=== PATIENT | male | born 1950 | race Two or more races ===

== ENCOUNTER 2019-03-01 17:33 | Emergency (ER) | payer OTHER ==
[~2019-03-01] VITALS: Ht 162.6 cm; Wt 80.7 kg
[2019-03-01 19:26] LABS: Basophils # (auto) 0.1 uL; Basophils % (auto) 0.4 % (0.0-2.0); Eosinophils # (auto) 0.1 uL; Eosinophils % (auto) 1.3 % (0.0-7.0); Hematocrit 39.2 % (41.0-53.0); Hemoglobin 13.2 g/dL (13.5-17.5); Lymphocytes # (auto) 0.5 uL; Lymphocytes % (auto) 4.4 % (10.0-50.0); Mean Corpuscular Hemoglobin 28.4 pg (28.0-32.0); Mean Corpuscular Hgb Conc. 33.5 g/dL (32.0-36.0); Mean Corpuscular Volume 84.7 fL (80.0-100.0); Monocytes # (auto) 0.3 uL; Monocytes % (auto) 2.6 % (0.0-12.0); Neutrophils # (auto) 10.7 uL; Neutrophils % (auto) 91.3 % (37.0-80.0); Nucleated Red Blood Cells % 0.1 %; Platelet Count (auto) 202 10^3/uL (140-450); Red Blood Cells 4.63 10^6/uL (4.5-5.90); Red Cell Distribution Width 16.2 % (11.8-14.3); White Blood Cell 11.7 10^3/uL (4.4-10.8)
[2019-03-01 19:40] LABS: Albumin 3.8 g/dL (3.4-5.0); Anion Gap 8 (5-15); Blood Urea Nitrogen 13 mg/dL (7-18); Calcium 8.6 mg/dL (8.5-10.1); Carbon Dioxide 24 mmol/L (21-32); Chloride 109 mmol/L (98-107); Glucose 138 mg/dL (74-106); INR 1.09 (0.9-1.15); Partial Thromboplastin Time 25.3 sec (23.64-32.05); Potassium 4.1 mmol/L (3.5-5.1); Sodium 141 mmol/L (136-145)
[2019-03-01 19:42] LABS: BUN/Creatinine Ratio 7.1; GFR African American 47 mL/min; GFR Non-African American 39 mL/min
[2019-03-01 19:47] LABS: Alanine Aminotransferase 27 U/L (16-61); Alkaline Phosphatase 71 U/L (45-117); Aspartate Aminotransferase 30 U/L (15-37); Bilirubin, Total 0.8 mg/dL (0.2-1.0); Total Protein 7.5 g/dL (6.4-8.2)
[2019-03-01 19:58] LABS: Urine Blood Trace /uL (Negative); Urine Specific Gravity 1.013 (1.001-1.035)
[2019-03-01 20:36] LABS: Lactic Acid w/Reflex 2.8 mmol/L (0.4-2.0)
[2019-03-01] MEDS ORDERED: cefTRIAXone 1GM/50ML D5W 50 ML IV ONE (21:45)
[2019-03-01 23:00] VITALS: BP 144/91
== END 2019-03-02 00:02 | disposition home or self-care (01) ==
LOC: EDBD 17:33 → ER 17:33
DX: N39.0 Urinary tract infection, site not specified (principal); R42 Dizziness and giddiness; I10 Essential (primary) hypertension; E78.00 Pure hypercholesterolemia, unspecified; Z88.2 Allergy status to sulfonamides
CPT/HCPCS: 36415; 71045; 80053; 81003; 83605; 83735; 83880; 84484; 85025; 85379; 85610; 85730; 87040; 93005; 96365; 99284; J0696

== ENCOUNTER 2023-11-03 17:45 | Inpatient (IN) | payer OTHER ==
[~2023-11-03] VITALS: Ht 162.6 cm; Wt 86.6 kg
[2023-11-03 18:24] VITALS: PULSE 65; RESP 13; O2SAT 65
[2023-11-03 18:29] LABS: Basophils # (auto) 0.1 10 ^3/uL (0-0.2); Basophils % (auto) 1.2 % (0.0-2.0); Eosinophils # (auto) 0.2 10 ^3/uL (0-0.8); Eosinophils % (auto) 3.5 % (0.0-7.0); Hematocrit 38.6 % (41.0-53.0); Hemoglobin 13.1 g/dL (13.5-17.5); Lymphocytes # (auto) 1.8 10 ^3/uL (0.4-5.4); Lymphocytes % (auto) 31.9 % (10.0-50.0); Mean Corpuscular Volume 85.2 fL (80.0-100.0); Monocytes # (auto) 0.3 10 ^3/uL (0-1.3); Monocytes % (auto) 5.6 % (0.0-12.0); Neutrophils # (auto) 3.2 10 ^3/uL (1.6-8.6); Neutrophils % (auto) 57.8 % (37.0-80.0); Nucleated Red Blood Cells % 0.1 %; Red Blood Cells 4.53 10^6/uL (4.5-5.90); Red Cell Distribution Width 17.2 % (11.8-14.3); White Blood Cell 5.6 10^3/uL (4.4-10.8)
[2023-11-03] MEDS: ASPirin 81 mg TAB PO ONE (18:30)
[2023-11-03 18:45] LABS: INR 1.13 (0.9-1.15); Partial Thromboplastin Time 26.8 SEC (24.5-34.5); Prothrombin Time 11.9 sec (9.3-11.8)
[2023-11-03 18:49] LABS: Urine Bacteria None Seen /hpf (None Seen)
[2023-11-03 18:50] LABS: Alanine Aminotransferase 27 U/L (7-40); Albumin 4.1 g/dL (3.2-4.8); Alkaline Phosphatase 60 U/L (46-116); Anion Gap 7 (5-15); Aspartate Aminotransferase 64 U/L (13-40); BUN/Creatinine Ratio 8.5 (10.0-20.0); Blood Urea Nitrogen 14 mg/dL (9-23); Calcium 9.2 mg/dL (8.7-10.4); Carbon Dioxide 26 mmol/L (20-30); Chloride 107 mmol/L (98-107); Glucose 190 mg/dL (74-106); Magnesium 1.8 mg/dL (1.6-2.6); Potassium 4.4 mmol/L (3.5-5.1); Sodium 140 mmol/L (136-145)
[2023-11-03 18:51] LABS: Bilirubin, Total 0.6 mg/dL (0.2-1.0); Total Protein 6.2 g/dL (5.7-8.2)
[2023-11-03 19:04] LABS: Urine Blood Negative /uL (Negative); Urine Clarity Clear (Clear); Urine Color Colorless (Yellow); Urine Protein, UAD Negative (Negative); Urine Specific Gravity 1.007 (1.001-1.035); Urine Urobilinogen Normal (Negative); Urine WBC <1 /hpf (0 - 3); Urine pH 6.5 (5.0-9.0)
[2023-11-03 20:00] VITALS: PULSE 57; RESP 15; O2SAT 98
[2023-11-03] MEDS: HEPARIN 1,000 UNITS/ml 1ML VIAL IV ONE (20:07)
[2023-11-03] MEDS: MORPHINE SULFATE 4 MG/ML SYR/VIAL IV ONE (20:08)
[2023-11-03] MEDS: ONDANSETRON HCL 4 MG/2 ML VIAL IV ONE (20:08)
[2023-11-03] MEDS: NITROGLYCERIN 50MG/250ML 250 ML IV ONE (20:09)
[2023-11-03] MEDS ORDERED: ONDANSETRON HCL 4 MG/2 ML VIAL IV PRN (21:30)
[2023-11-03] MEDS ORDERED: DOCUSATE SOD 100 MG CAP PO PRN (21:30)
[2023-11-03] MEDS ORDERED: NITROGLYCERIN 0.4 MG SL TAB SL PRN (21:30)
[2023-11-03] MEDS ORDERED: ACETAMINOPHEN 325 MG TAB PO PRN (21:30)
[2023-11-03 21:46] LABS: Triglycerides 91 mg/dL (< 150)
[2023-11-03 21:47] LABS: LDL Cholesterol 130 mg/dL (< 100)
[2023-11-03 21:48] LABS: Cholesterol 184 mg/dL (< 200); HDL Cholesterol 41 mg/dL (40-59)
[2023-11-03] MEDS: ATORVASTATIN 20 MG TAB PO ONE (22:11)
[2023-11-03] MEDS: SODIUM CHLOR 0.9% PF (SALINE LOCK) 10ML VIAL/SYR IV SCH (22:11)
[2023-11-03 22:51] VITALS: PULSE 56; RESP 14; O2SAT 97
[2023-11-04] VITALS (20 sets, daily range): BP systolic 92–139; BP diastolic 0–79; PULSE 62–87; RESP 10–20; TEMP 98.1–100.2; O2SAT 87–99
[2023-11-04] MEDS: hydrALAZINE HCL 20 MG/ML VL IV PRN (00:25)
[2023-11-04] MEDS: MORPHINE SULFATE INJ 2 MG/ml SYRG IV PRN (01:45)
[2023-11-04] MEDS: HEPARIN DRIP/D5W 100UNITS/ML 250 ML IV SCH ×2 (02:25→09:00)
[2023-11-04] MEDS: CLOPIDOGREL BISULFATE 75 MG TAB PO ONE (04:21)
[2023-11-04] MEDS: ASPirin 81 mg TAB PO ONE (04:21)
[2023-11-04 08:14] LABS: INR 1.15 (0.9-1.15); Partial Thromboplastin Time 41.4 SEC (24.5-34.5); Prothrombin Time 12.1 sec (9.3-11.8)
[2023-11-04 09:00] LABS: Basophils # (auto) 0.1 10 ^3/uL (0-0.2); Basophils % (auto) 0.8 % (0.0-2.0); Eosinophils # (auto) 0.2 10 ^3/uL (0-0.8); Eosinophils % (auto) 2.4 % (0.0-7.0); Hematocrit 40.3 % (41.0-53.0); Hemoglobin 13.5 g/dL (13.5-17.5); Lymphocytes # (auto) 1.4 10 ^3/uL (0.4-5.4); Lymphocytes % (auto) 19.9 % (10.0-50.0); Mean Corpuscular Hemoglobin 28.8 pg (28.0-32.0); Mean Corpuscular Hgb Conc. 33.5 g/dL (32.0-36.0); Monocytes # (auto) 0.5 10 ^3/uL (0-1.3); Monocytes % (auto) 6.3 % (0.0-12.0); Neutrophils # (auto) 5.1 10 ^3/uL (1.6-8.6); Neutrophils % (auto) 70.6 % (37.0-80.0); Nucleated Red Blood Cells % 0.1 %; Red Blood Cells 4.68 10^6/uL (4.5-5.90); Red Cell Distribution Width 17.6 % (11.8-14.3); White Blood Cell 7.3 10^3/uL (4.4-10.8)
[2023-11-04 09:15] LABS: Alanine Aminotransferase 31 U/L (7-40); Albumin 3.9 g/dL (3.2-4.8); Alkaline Phosphatase 61 U/L (46-116); Anion Gap 7 (5-15); Aspartate Aminotransferase 136 U/L (13-40); BUN/Creatinine Ratio 8.8 (10.0-20.0); Blood Urea Nitrogen 13 mg/dL (9-23); Calcium 8.9 mg/dL (8.7-10.4); Carbon Dioxide 24 mmol/L (20-30); Chloride 106 mmol/L (98-107); Glucose 131 mg/dL (74-106); Potassium 4.4 mmol/L (3.5-5.1); Sodium 137 mmol/L (136-145)
[2023-11-04 09:16] LABS: Bilirubin, Total 0.6 mg/dL (0.2-1.0); Total Protein 6.2 g/dL (5.7-8.2)
[2023-11-04] MEDS ORDERED: SODIUM CHLORIDE 0.9% 1,000 ML IV SCH (09:30)
[2023-11-04] MEDS: SODIUM CHLORIDE 0.9% 1,000 ML IV ONE (09:30)
[2023-11-04] MEDS: IODIXANOL 320MG/ML 100ML BTL IV ONE ×2 (09:38→10:40)
[2023-11-04] MEDS: HEPARIN IN NS 1000Units/500mL 1,500 ML ONE (09:39)
[2023-11-04] MEDS: HEPARIN SODIUM (PORCINE) 5000 UNITS/ML 1ML VIAL ONE (09:45)
[2023-11-04] MEDS: VERAPAMIL 2.5MG/ML INJ 2ML VIAL IV ONE (09:45)
[2023-11-04] MEDS: LIDOCAINE 2%HCL (LOCAL ANESTH.) INJ 20ML MDV ONE (09:45)
[2023-11-04] MEDS: MIDAZOLAM HCL 2MG/2ML 2ml VIAL (1mg/ml) ONE (10:06)
[2023-11-04] MEDS: fentaNYL CITRATE 100 MCG/2 ML VL ONE (10:06)
[2023-11-04] MEDS: SODIUM CHL 0.9% 0 ML ONE (10:10)
[2023-11-04] MEDS: ANGIOMAX 250 MG VIAL IV ONE (10:39)
[2023-11-04] MEDS: PANTOPRAZOLE 40 MG/10 ML VIAL INJ IV SCH (10:50)
[2023-11-04] MEDS: NITROGLYCERIN 50MG/250ML 250 ML IV ONE (10:51)
[2023-11-04] MEDS: METOPROLOL SUCCINATE XL 50 MG TAB PO SCH (10:51)
[2023-11-04] MEDS: HYDROcodone-ACET 5/325MG TAB PO PRN (13:01)
[2023-11-04 14:46] LABS: INR 1.1 (0.9-1.15); Partial Thromboplastin Time 64.9 SEC (24.5-34.5); Prothrombin Time 11.6 sec (9.3-11.8)
[2023-11-04 20:37] LABS: INR 1.14 (0.9-1.15)
[2023-11-04] MEDS ORDERED: ATORVASTATIN 20 MG TAB PO SCH (22:00)
[2023-11-05] MEDS ORDERED: ASPirin 81 mg TAB PO SCH (10:00)
== END 2023-11-04 21:00 | disposition short-term general hospital (02) | DRG 280 ==
LOC: EDBD 17:45 → ER 17:45 → TELE 21:21 → TELE-WESTW 11-04 15:32
PROVIDERS: ADMIT Internal Medicine; ATTEND Internal Medicine
PROC: 4A023N7 Measurement of Cardiac Sampling and Pressure, Left Heart, Percutaneous Approach (ICD-10-PCS; principal; 2023-11-04)
PROC: B211YZZ Fluoroscopy of Multiple Coronary Arteries using Other Contrast (ICD-10-PCS; 2023-11-04)
PROC: B215YZZ Fluoroscopy of Left Heart using Other Contrast (ICD-10-PCS; 2023-11-04)
DX: I21.4 Non-ST elevation (NSTEMI) myocardial infarction (principal); N17.0 Acute kidney failure with tubular necrosis; E78.5 Hyperlipidemia, unspecified; I10 Essential (primary) hypertension; K21.9 Gastro-esophageal reflux disease without esophagitis; F32.A Depression, unspecified; R73.03 Prediabetes; E66.9 Obesity, unspecified; N40.0 Benign prostatic hyperplasia without lower urinary tract symptoms; Z88.6 Allergy status to analgesic agent; Z88.2 Allergy status to sulfonamides; Z79.02 Long term (current) use of antithrombotics/antiplatelets; Z87.442 Personal history of urinary calculi; Z87.891 Personal history of nicotine dependence; Z68.32 Body mass index [BMI] 32.0-32.9, adult
CPT/HCPCS: 36415; 71045; 80053; 80061; 81001; 83036; 83735; 83880; 84443; 84484; 85025; 85610; 85730; 93005; 93458; 99152; 99291; G0378; J2250; J2405; J2470; Q9967